=== PATIENT | female | born 1960 | race Caucasian/White ===

== ENCOUNTER 2022-03-31 13:00 | Outpatient (CLI) | payer OTHER | END 2022-03-31 13:01 | disposition home or self-care (01) | LOC: CSHCT 13:00 | PROVIDERS: ATTEND Family Medicine | DX: Z12.2 Encounter for screening for malignant neoplasm of respiratory organs (principal); F17.210 Nicotine dependence, cigarettes, uncomplicated | CPT/HCPCS: 71271 ==

== ENCOUNTER 2022-03-31 13:29 | Outpatient (CLI) | payer OTHER | END 2022-03-31 13:30 | disposition home or self-care (01) | LOC: CSHMAMMO 13:29 | PROVIDERS: ATTEND Family Medicine | DX: Z12.31 Encounter for screening mammogram for malignant neoplasm of breast (principal); Z98.82 Breast implant status; N64.89 Other specified disorders of breast | CPT/HCPCS: 77063; 77067 ==

== ENCOUNTER 2022-04-06 08:43 | Outpatient (CLI) | payer OTHER | END 2022-04-06 08:44 | disposition home or self-care (01) | LOC: CSHMAMMO 08:43 | PROVIDERS: ATTEND Family Medicine | DX: N64.89 Other specified disorders of breast (principal) | CPT/HCPCS: 77065; G0279 ==

== ENCOUNTER 2022-10-19 08:48 | Outpatient (CLI) | payer OTHER | END 2022-10-19 08:49 | disposition home or self-care (01) | LOC: CSHRAD 08:48 | PROVIDERS: ATTEND Internal Medicine | DX: R53.82 Chronic fatigue, unspecified (principal) | CPT/HCPCS: 71046 ==

== ENCOUNTER 2022-12-25 12:25 | Outpatient (CLI) | payer OTHER | END 2022-12-25 12:26 | disposition home or self-care (01) | LOC: CSHCP 12:25 | PROVIDERS: ATTEND Internal Medicine | DX: R06.02 Shortness of breath (principal); J44.9 Chronic obstructive pulmonary disease, unspecified | CPT/HCPCS: 94060; 94726; 94729; 94760 ==

== ENCOUNTER 2023-04-03 07:36 | Outpatient (CLI) | payer OTHER | END 2023-04-03 07:37 | disposition home or self-care (01) | LOC: CSHCT 07:36 | PROVIDERS: ATTEND Internal Medicine | DX: Z12.2 Encounter for screening for malignant neoplasm of respiratory organs (principal); F17.210 Nicotine dependence, cigarettes, uncomplicated | CPT/HCPCS: 71271 ==

== ENCOUNTER 2024-04-03 08:21 | Outpatient (CLI) | payer OTHER | END 2024-04-03 08:22 | disposition home or self-care (01) | LOC: CSHRAD 08:21 | PROVIDERS: ATTEND Internal Medicine | DX: Z12.2 Encounter for screening for malignant neoplasm of respiratory organs (principal); F17.218 Nicotine dependence, cigarettes, with other nicotine-induced disorders | CPT/HCPCS: 71271 ==

== ENCOUNTER 2024-04-03 09:39 | Outpatient (CLI) | payer OTHER | END 2024-04-03 09:40 | disposition home or self-care (01) | LOC: CSHMAMMO 09:39 | PROVIDERS: ATTEND Internal Medicine | DX: Z12.31 Encounter for screening mammogram for malignant neoplasm of breast (principal); Z98.82 Breast implant status | CPT/HCPCS: 77063; 77067 ==

== ENCOUNTER 2025-06-25 10:16 | Outpatient (CLI) | payer OTHER | END 2025-06-25 10:17 | disposition home or self-care (01) | LOC: CSHMAMMO 10:16 | PROVIDERS: ATTEND Internal Medicine | DX: Z12.31 Encounter for screening mammogram for malignant neoplasm of breast (principal); Z98.82 Breast implant status | CPT/HCPCS: 77063; 77067 ==